=== PATIENT | female | born 1945 | race Caucasian/White ===

== ENCOUNTER → 2023-09-04 | Outpatient (CLI) | payer MEDICARE, MEDICAID ==
[~2023-09-04] MED LIST: ACET1TAB37 PO; ANAS1TAB2 PO; ASPI81TA26 PO; DICL100G10; ELIQ5TAB; FURO20TA2; LISI40TA4; METH25TAB; METO100T5; POTA-298; ROSU20TA61; THERTAB52 PO
== END ==
LOC: M ONCR 10:03
PROVIDERS: ATTEND General Practice
DX: D05.12 Intraductal carcinoma in situ of left breast (principal); Z71.2 Person consulting for explanation of examination or test findings; Z79.01 Long term (current) use of anticoagulants; Z79.811 Long term (current) use of aromatase inhibitors; Z79.82 Long term (current) use of aspirin; Z79.899 Other long term (current) drug therapy; Z87.891 Personal history of nicotine dependence; Z98.890 Other specified postprocedural states

== ENCOUNTER 2023-09-22 13:46 | Outpatient (RCR) | payer MEDICARE, MEDICAID | END 2023-10-09 | LOC: M ONCR 13:46 | PROVIDERS: ATTEND General Practice | DX: Z51.0 Encounter for antineoplastic radiation therapy (principal); D05.12 Intraductal carcinoma in situ of left breast ==

== ENCOUNTER 2023-11-06 13:38 | Outpatient (RCR) | payer MEDICARE, MEDICAID | END 2023-11-08 | LOC: M ONCR 13:38 | PROVIDERS: ATTEND General Practice | DX: Z51.0 Encounter for antineoplastic radiation therapy (principal); D05.12 Intraductal carcinoma in situ of left breast ==

== ENCOUNTER 2023-11-11 13:46 | Outpatient (RCR) | payer MEDICARE, MEDICAID | END 2023-12-09 | LOC: M ONCR 13:46 | PROVIDERS: ATTEND General Practice | DX: Z51.0 Encounter for antineoplastic radiation therapy (principal); D05.12 Intraductal carcinoma in situ of left breast ==

== ENCOUNTER → 2024-08-18 | Outpatient (CLI) | payer MEDICARE, MEDICAID ==
[~2024-08-18] MED LIST changes: +CALC600T57 PO; +METH-1386; -METH25TAB; -ROSU20TA61; +ROSU20TA86
== END ==
LOC: M ONCR 11:50
PROVIDERS: ATTEND General Practice
DX: Z08 Encounter for follow-up examination after completed treatment for malignant neoplasm (principal); Z85.3 Personal history of malignant neoplasm of breast; Z79.01 Long term (current) use of anticoagulants; Z79.811 Long term (current) use of aromatase inhibitors; Z79.82 Long term (current) use of aspirin; Z79.899 Other long term (current) drug therapy; Z87.891 Personal history of nicotine dependence; Z92.3 Personal history of irradiation; Z98.890 Other specified postprocedural states